=== PATIENT | male | born 1950 | race Caucasian/White ===

== ENCOUNTER 2019-02-05 05:32 | Day surgery (SDC) | payer MEDICARE ==
[2019-02-05] VITALS (8 sets, daily range): BP systolic 128–161; BP diastolic 74–88; PULSE 40–48; TEMP 97.4
[~2019-02-05] VITALS: Ht 167.6 cm; Wt 60.6 kg
[2019-02-05] MEDS ORDERED: FLOMAX 0.40.4 MG/CAP PO (06:42)
[2019-02-05] MEDS ORDERED: ZYLOPRIM 100MG100 MG PO (06:42)
--- NOTE | 2019-02-05 09:15 | NUR ---
Patient returns to room 8 per cart from PACU and is awake and alert. Temp 97.2 and room air sats 99%. Reyes set dressing x3 on lower abdomen dry. Abdomen soft and flat. IV fluids infusing left hand and siderails up x2. Call light in reach. Spouse in room. Allowed to rest.
--- NOTE | 2019-02-05 09:30 | NUR ---
More awake and drinking coffee. Room air sats 100%.
--- NOTE | 2019-02-05 09:45 | NUR ---
Resting and sipping on coffee. Spouse in room.
[2019-02-05] MEDS ORDERED: ULTRAM 50MG TAB50 MG PO (09:50)
--- NOTE | 2019-02-05 10:00 | NUR ---
Eating toast and denie nausea or need for pain medication.
--- NOTE | 2019-02-05 10:15 | NUR ---
Tolerated toast and denies pain or nausea. Sipping on water.
--- NOTE | 2019-02-05 10:45 | NUR ---
Resting and states that he is beginning to have more incisional discomfort. Offered pain medication and wishes to wait.
--- NOTE | 2019-02-05 10:52 | NUR ---
Medicated with [place] 5mg one tab for pain rating of 5/10. Will continue to monitor.
--- NOTE | 2019-02-05 11:15 | NUR ---
Resting and tolerated toast and coffee. States that he has gotten good relief of incisional pain and is comfortable. Assisted up to the bathroom and is unable to void. Returns to room and is drinking Sprite.
--- NOTE | 2019-02-05 12:00 | NUR ---
Again up to the bathroom and is able to void small amount of yellow urine and returns to room. IV discontinued and patient is able to dress self.
--- NOTE | 2019-02-05 12:10 | NUR ---
Patient returns to the bathroom and is able to void more urine. Instructed to resume Flomax when he returns home. Patient states that he has not taken any for 2 days.
--- NOTE | 2019-02-05 12:30 | NUR ---
Patient given dismissal instructions and voices understanding of these. Provided script for Ultram. Informed that he may take Motrin 600mg po every 6 hours if needed and may take first dose at 1400 today. Instructed to always take pain medication with food or snack.
--- NOTE | 2019-02-05 12:36 | NUR ---
Patient dismissed to home driven by spouse and taken to the front door per wheelchair and assisted into vehicle driven by spouse with dismissal instructions in hand.
== END 2019-02-05 12:36 | disposition home or self-care (01) ==
LOC: SDCO 05:32
DX: K40.90 Unilateral inguinal hernia, without obstruction or gangrene, not specified as recurrent (principal); M10.9 Gout, unspecified; Z87.891 Personal history of nicotine dependence
CPT/HCPCS: C1781; J1100; J1885; J2405; J2704; J2710; J3010; J7120